=== PATIENT | male | born 1945 | race Caucasian/White ===

== ENCOUNTER 2017-01-27 10:52 | Outpatient (CLI) | payer MEDICARE, OTHER ==
[2014-10-02 05:47] VITALS: BP 123/48
== END 2017-01-27 10:53 ==
LOC: CARD 10:52
PROVIDERS: ATTEND Internal Medicine Cardiovascular Disease
DX: I25.10 Atherosclerotic heart disease of native coronary artery without angina pectoris (principal)
CPT/HCPCS: G0463

== ENCOUNTER 2017-11-10 13:49 | Outpatient (CLI) | payer MEDICARE, OTHER ==
[2014-10-02 05:47] VITALS: BP 123/48
== END 2017-11-10 13:50 ==
LOC: CARD 13:49
PROVIDERS: ATTEND Internal Medicine Cardiovascular Disease
DX: I25.10 Atherosclerotic heart disease of native coronary artery without angina pectoris (principal); I10 Essential (primary) hypertension; E78.5 Hyperlipidemia, unspecified; E66.9 Obesity, unspecified; E11.9 Type 2 diabetes mellitus without complications
CPT/HCPCS: G0463

== ENCOUNTER 2018-03-26 20:03 | Emergency (ER) | payer MEDICARE, OTHER ==
--- NOTE | 2018-03-26 20:35 | ED Physician Documentation ---
General Adult - HISTORIAN Historian: patient - HPI Stated Complaint: tachycardia, SOB, groin pain Chief Complaint: General Adult Additional Information: Right groin pain for almost three months, since he had prostate biopsy. [place] something snap in mithat area and has pain to right mid thigh, posterior to penis and into left medial thigh. Dr. Mei changed his meds 2 weeks ago because his systolic BP said to be in 90's. Triamterene/HCTZ and isosorbide were dc'ed. This evening, he has been breathing rapidly, his HR has been >100. His systolic BP was 190. He took a 37.5 mg triamtereneHCTZ at about 2000; has been urinating frequently since. Has been coughing more for months, with occasional mucus production. Takes 170 U Lantus each evening. His most recent HgbA1C was 6.5. FSG's 5x/day, and said to be 150 or so today. Pulse ox 92% on ambient air on arrival. Tachypneic but talks non-stop. Left foot has been shaking for "a long time." he has neuropathy. BX and scan of prostate showed "low level" cancer. FSG in ER 155. Denies anxiety. No other modifying factors or associated signs. - ROS CONST: no problems - PAST HX Past History: AMI (2004, bypass graft. ), other (IDDM) Surgeries/Procedures: cardiac bypass (daily 81 mg ASA) Allergies/Adverse Reactions: Allergies Allergy/AdvReac Type Severity Reaction Status Date / Time No Known Allergies Allergy Verified 03/26/18 20:31 Home Medications: Ambulatory Orders Medication Instructions Recorded Acetaminophen [Tylenol] 650 mg PO Q6 12/09/12 Aspirin [Aspirin EC] 325 mg PO DAILY 12/09/12 Insulin Glargine,Hum.rec.anlog 120 units SQ HS 03/26/18 [Lantus Solostar] Insulin Lispro [Humalog] 45 units SQ AM 03/26/18 Insulin Lispro [Humalog] 60 units SQ ACS 03/26/18 Lisinopril 5 mg PO DAILY 03/26/18 - SOCIAL HX Smoking History: non-smoker Alcohol Use: none Drug Use: none - FAMILY HX Family History: No - VITAL SIGNS Vital Signs: Vital Signs Temp Pulse Resp BP Pulse Ox 123/48 10/02/14 08:27 - REVIEWED ASSESSMENTS Nursing Assessment Reviewed: Yes Vitals Reviewed: Yes Progress - Progress Progress: Report Submission Date: Mar 26, 2018 9:08:31 PM CDT Patient Study Name: SELENA REYNOLDS Date: Mar 26, 2018 8:29:38 PM CDT Modality Type: DX Gender: M Description: CHEST : 43 Institution: [facility] Physician: RODNEY PETERSON - ER AP chest CLINICAL HISTORY: Sudden onset severe shortness of breath. FINDINGS: Examination of the chest single AP view demonstrates bibasilar infiltrates or atelectasis worse on the left. Lung markings are accentuated by overlying soft tissues. There are multiple sternotomy wires and surgical fusion hardware in the cervical spine. IMPRESSION: Bibasilar infiltrates or atelectasis worse on the left. Hypoventilation. Electronically signed on Mar 26, 2018 9:08:31 PM CDT by: Andrea Jang Pt is deconditioned with poor mobility, and a fall risk. 2144, pt discussed with LC Crenshaw. Will admit to her. ED Results Lab/Radiology - Orders Orders: ED Orders Category Date Time Status Continuous EKG monitoring Q1H Care 03/26/18 20:[address] IV Lock 1T Care 03/26/18 20:19 Ordered CHEST 1VIEW [RAD] Stat Exams 03/26/18 Ordered CBC/PLATELET/DIFF Routine Lab 03/26/18 Ordered CMP Routine Lab 03/26/18 Ordered NT-proBNP Stat Lab 03/26/18 Ordered URINALYSIS Routine Lab 03/26/18 Ordered Chem Sticks Med 03/26/18 20:22 Ordered 1 each CHEMQ PRN Oxygen Daily Oxygen 03/26/18 20:30 Ordered EKG WITH COMPARISON Stat Ther 03/26/18 Ordered General Adult Physical Exam - PHYSICAL EXAM GENERAL APPEARANCE: moderate distress (anxious) EENT: eye inspection normal, ENT inspection normal, pharynx normal (Mallampati 2), no signs of dehydration NECK: normal inspection (non tender) RESPIRATORY: wheezes, rales, other (tachypneic to 35) CVS: reg rate & rhythm, heart sounds normal, other (trace DP's and PT's not palpable.) ABDOMEN: soft, normal bowel sounds, non-tender BACK: normal inspection, no CVA tenderness, other (no vertebral tenderness) SKIN: warm/dry, normal color (with 2L/NC), other (well healed median sternotomy scar, left lower leg medial surface with 2 well healed surgical scars) EXTREMITIES: non-tender (especially right thigh), other (skin intact [place] feet) NEURO: CN's nml as tested, motor nml, sensation nml, cognition normal (except difficulty explaining Humalog doses) Discharge Clincal Impression: Physical deconditioning, Pulmonary infiltrates on CXR, Strain of muscle of right groin region Diabetes mellitus Qualifiers: Diabetes mellitus type: other specified (including KARL) Diabetes mellitus fci insulin use: with fci use Diabetes mellitus complication status: with neurologic complications Diabetes mellitus complication detail: with polyneuropathy Qualified Code(s): 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
[2018-03-26 20:51] LABS: BASOPHILS % 0.2 (0.0-1.5); MEAN CORPUSCULAR VOLUME 93.5 fl (80.0-100.0); MONOCYTES % 2.5 % (0.0-11.0); NEUTROPHILS # 12.1 # k/uL (1.4-7.7)
[2018-03-26] MEDS ORDERED: IPRATROPIUM/ALBUTEROL SULFATE 3 ML AMPUL.NEB NEB ONE ×2 (20:51)
[2018-03-26 21:05] LABS: eGFR (African) > 60; eGFR (Non-African) > 60
--- NOTE | 2018-03-26 21:11 | Diagnostic Imaging Report ---
RODNEY PETERSON [facility] [id number] [facility] [address] [address] Report Submission Date: Mar 26, 2018 9:08:31 PM CDT Patient Study Name: SELENA REYNOLDS Date: Mar 26, 2018 8:29:38 PM CDT Modality Type: DX Gender: M Description: CHEST : 43 Institution: [facility] Physician: RODNEY PETERSON AP chest CLINICAL HISTORY: Sudden onset severe shortness of breath. FINDINGS: Examination of the chest single AP view demonstrates bibasilar infiltrates or atelectasis worse on the left. Lung markings are accentuated by overlying soft tissues. There are multiple sternotomy wires and surgical fusion hardware in the cervical spine. IMPRESSION: Bibasilar infiltrates or atelectasis worse on the left. Hypoventilation. Electronically signed on Mar 26, 2018 9:08:31 PM CDT by: Andrea SALGADO
[2018-03-26] MEDS ORDERED: cefTRIAXone SODIUM 1 GM in 0.9 % SODIUM CHLORIDE 50 ML IV ONE (21:13)
[2018-03-26] MEDS ORDERED: AZITHROMYCIN 250 MG TABLET PO ONE (21:13)
[2018-03-26] MEDS ORDERED: cefTRIAXone SODIUM 1 GM VIAL ONE (21:18)
[2018-03-26] MEDS ORDERED: 0.9 % SODIUM CHLORIDE 100 ML IV ONE (21:19)
[2018-03-27 03:25] VITALS: BP 137/68
== END 2018-03-26 23:40 | disposition left against medical advice (07) ==
LOC: ED 20:03
DX: R91.8 Other nonspecific abnormal finding of lung field (principal); E13.42 Other specified diabetes mellitus with diabetic polyneuropathy; Z79.4 Long term (current) use of insulin; E66.9 Obesity, unspecified; Z68.42 Body mass index [BMI] 45.0-49.9, adult
CPT/HCPCS: 71045; 80053; 83880; 85025; 87040; J0696; 94640; 96365; 96366; S1016